=== PATIENT | male | born 1995 | race Caucasian/White ===

== ENCOUNTER 2017-11-29 20:57 | Emergency (ER) | payer OTHER ==
[2017-11-29 21:40] LABS: Hematocrit 38.8 % (42.0-52.0); Hemoglobin 13.7 gm/dL (13.5-18.0); Mean Cell Volume 87.4 fl (78-100); Mean Corpuscular Hemoglobin 30.9 pg (27-31); Mean Corpuscular Hgb Conc 35.3 g/dl (32-36); Mean Platelet Volume 10.4 fl (6.0-9.5); Neutrophil # 10.9 K/mm3 (1.3-6.0); Neutrophil % 68.5 % (42-75.0); Platelet Count 283 K/mm3 (150-450); Red Blood Count 4.44 M/mm3 (4.7-6.0); Red Cell Distribution Width 12.9 % (11.5-14.0); White Blood Count 15.8 K/mm3 (4.0-10.5)
[2017-11-29 21:41] LABS: Urine Bilirubin Negative (NEGATIVE); Urine Blood Negative /ul (NEGATIVE); Urine Ketone Negative (NEGATIVE); Urine Nitrite Negative (NEGATIVE); Urine Protein Negative (NEGATIVE); Urine Specific Gravity <=1.005 SP.GR. (1.005-1.030); Urine Urobilinogen Normal (NORMAL)
--- NOTE | 2017-11-29 21:42 | ERNOTE ---
Date of Service: 11/29/17 Time Seen by Provider: 11/29/17 21:00 Stated Complaint: RIB PAIN AND GROIN PAIN Source: patient Exam Limitations: no limitations Immunizations: IMMUNIZATION HX Immunizations Up to Date Yes History of Influenza Vaccine No Allergies/Adverse Reactions: Allergies No Known Drug Allergies Allergy (Verified 11/29/17 21:06) Home Medications: HOME MEDICATIONS Doxycycline Hyclate [Morgidox] 100 mg PO BID 10 Days #20 capsule 11/29/17 [Last Taken Unknown] - History of Present Ilness Narrative: Patient states that over the past several weeks he has had periodic pains across his body in random locations. States tonight he has some right groin discomfort radiating down into the region of the right testicle. Denies any testicular pain. Has had some penile drainage but states more clear with no odor. Currently denies any chest pain. Date (Duration): 11/08/17 Timing: intermittent, resolved prior to arrival Severity: mild Frequency/Possible Cause: Reports: occasional episodes Modifying Factors - Improves: Reports: nothing Modifying Factors - Worsens: Reports: nothing Associated Symptoms: Reports: denies symptoms Review of Systems - Narrative Narrative: Only complains of right groin pain at this time. Denies any dyspnea or chest pain. Again an intermittent aching in the right groin radiating down into the scrotum but not the testicle. 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 - Review of Systems Constitutional: Present: no symptoms reported Respiratory: Present: no symptoms reported Cardiology: Present: no symptoms reported - Denies any dysuria with occasional clear discharge. States his testicle and penis feel normal tonight. Gastrointestinal/Abdominal: Present: other - No abdominal pain. Right lower groin aching periodic. Musculoskeletal: Present: no symptoms reported Skin: Present: no symptoms reported Neurological: Present: anxiety Endocrine: Present: no symptoms reported Hematologic/Lymphatic: Present: no symptoms reported - Patient's Past Medical History Patient History - Medical: No pertinent hx Patient History - Cardiac/Respiratory: No pertinent hx Patient History - Cancer: Testicular Patient History - Surgical Procedures: Cancer Surgery Patient History - Other: None - Social History Living Situations: home Psych History: No pertinent hx Smoking Status: Current every day smoker Alcohol Use: occasionally Drug Use: marijuana - Immunizations Immunizations Up to Date: Yes History of Influenza Vaccine: No Physical Exam - Physical Exam General Appearance: Present: wd/wn, alert, no apparent distress Head Exam: Present: normal inspection, no evidence of injury Neck: Present: normal inspection, nontender, supple Respiratory: Present: no respiratory distress, normal breath sounds, no accessory muscle use, chest nontender, lungs clear Cardiovascular/Chest: Present: regular rate, rhythm, no murmur, normal peripheral pulses Gastrointestinal/Abdominal: Present: normal bowel sounds, nontender, soft, no organomegaly, other - Able to palpate right lower groin with no guarding or recoil. Denies any increase in pain. Male Genitals Exam: Present: no hernia, other - Left testicle absent. No right testicular tenderness or swelling. No inguinal hernia present. No erythema, warmth, or swelling of the hemiscrotum. Extremity Exam: Present: normal range of motion Neurological Exam: Present: alert, oriented, no motor/sensory deficits Skin Exam: Present: normal color, warm/dry ED Progress - Results and Orders Patient's Lab Results:: I have reviewed the patient's lab results. - Vital Signs Patient's Vital Signs:: I have reviewed the patient's vital signs. Vital Signs: Vital Signs 11/29/17 11/29/17 21:01 21:08 Temperature 36.8 C 36.8 C Pulse Rate 113 H 113 H Respiratory 18 18 Rate Blood Pressure 133/76 133/76 O2 Sat by Pulse 99 99 Oximetry - Progress/Reassessment Chief Complaint: Cough Progress:: Unchanged Progress Note-Subjective: 11/29/17 22:26 States his groin discomfort was very minimal from the start tonight. Departure Clinical Impression: Orchitis and epididymitis - Departure Disposition: Home Follow Up Needed Condition: Good Additional Instructions: Am going to treat you for infection in and around the testicle. Will also cover an STD if positive. However very important you follow up with family provider to schedule an ultrasound of the right testicle since you had previous cancer of the left. Should see some improvement over the next several days. Take ibuprofen 600mg every 6 hrs with food. May also take tylenol. Take the full course of antibiotics. If you worsen or do not improve return to ER or family provider. Prescriptions: Doxycycline Hyclate [Morgidox] 100 mg PO BID 10 Days #20 capsule
[2017-11-29 21:55] LABS: Albumin * 4.1 gm/dl (3.4-5.0); Anion Gap 12.9 mmol/L (6.8-13.8); BUN/Creatinine Ratio 14.5 (9.0-21.6); Bilirubin, Total 0.1 mg/dL (0.0-1.1); Ca. Corrected For Albumin 8.1 mg/dL (8.4-10.2); Calcium * 8.5 mg/dL (7.9-10.9); Potassium 3.9 mmol/L (3.4-4.6); Total Protein 7.7 gm/dL (6.2-8.2)
[2017-11-29 22:07] LABS: Urine Appearance Clear; Urine Bacteria 1+; Urine Color Yellow; Urine RBC None Seen /hpf (0-5); Urine WBC None Seen /hpf (0-5)
[2017-11-29] MEDS ORDERED: DOXYCYCLINE HYCLATE 100 MG TABLET PO ONE (22:24)
[2017-11-29] MEDS ORDERED: DOXYCYCLINE HYCLATE 100 MG TABLET ONE (22:32)
[2017-11-29 22:35] VITALS: BP 165/76
== END 2017-11-29 22:39 | disposition home or self-care (01) ==
LOC: ER 20:57
DX: N45.3 Epididymo-orchitis; F17.200 Nicotine dependence, unspecified, uncomplicated